=== PATIENT | female | born 1985 | race Hispanic/Latino ===

== ENCOUNTER → 2022-06-11 | Outpatient (CLI) | payer OTHER ==
[~2022-06-11] MED LIST: DAYTRANA PO; VITAMIN D
== END ==
LOC: US 08:58
PROVIDERS: ATTEND Internal Medicine Gastroenterology
DX: R10.11 Right upper quadrant pain (principal)
CPT/HCPCS: 76700

== ENCOUNTER → 2022-06-11 | Day surgery (SDC) | payer BC, OTHER ==
[~2022-06-11] MED LIST changes: +FENTANYL CITRATE/PF 100MCG/2 ML INJ ONE; +LIDOCAINE HCL 2% LOCAL INJ 5 ML SDV VIAL INJ ONE; +METOCLOPRAMIDE HCL 10 MG/2ML VIAL ONE; +MIDAZOLAM HCL 2 MG/2 ML VIAL ONE; +PROPOFOL IV EMULSION 10 MG/ML 20 ML VIAL ONE
[2022-06-11 15:45] VITALS: BP 102/62
== END | disposition home or self-care (01) ==
LOC: OR 08:31
PROVIDERS: ATTEND Internal Medicine Gastroenterology
DX: K29.70 Gastritis, unspecified, without bleeding (principal); D13.0 Benign neoplasm of esophagus; K31.7 Polyp of stomach and duodenum; K29.80 Duodenitis without bleeding; K20.90 Esophagitis, unspecified without bleeding; K57.90 Diverticulosis of intestine, part unspecified, without perforation or abscess without bleeding; R19.7 Diarrhea, unspecified; R19.5 Other fecal abnormalities; Z87.19 Personal history of other diseases of the digestive system; J45.909 Unspecified asthma, uncomplicated; L30.9 Dermatitis, unspecified; E66.9 Obesity, unspecified; F98.8 Other specified behavioral and emotional disorders with onset usually occurring in childhood and adolescence; F41.9 Anxiety disorder, unspecified; Z79.899 Other long term (current) drug therapy; Z68.38 Body mass index [BMI] 38.0-38.9, adult
CPT/HCPCS: 43239; 81025; C9113; J2001; J2250; J2704; J2765; J3010

== ENCOUNTER → 2022-07-01 | Outpatient (CLI) | payer OTHER ==
[~2022-07-01] MED LIST changes: -FENTANYL CITRATE/PF 100MCG/2 ML INJ ONE; -LIDOCAINE HCL 2% LOCAL INJ 5 ML SDV VIAL INJ ONE; -METOCLOPRAMIDE HCL 10 MG/2ML VIAL ONE; -MIDAZOLAM HCL 2 MG/2 ML VIAL ONE; -PROPOFOL IV EMULSION 10 MG/ML 20 ML VIAL ONE
== END ==
LOC: NM 08:37
PROVIDERS: ATTEND Internal Medicine Gastroenterology
DX: R10.11 Right upper quadrant pain (principal); K80.80 Other cholelithiasis without obstruction
CPT/HCPCS: 78227; A9537